=== PATIENT | male | born 1985 | race Caucasian/White ===

== ENCOUNTER 2020-10-08 14:07 | Outpatient (CLI) | payer BC ==
[~2020-10-08 14:07] MED LIST: HYDR1TAB PO
== END 2020-10-08 14:30 | disposition home or self-care (01) ==
LOC: SLEEP 14:07
PROVIDERS: ATTEND Otolaryngology Otolaryngology/Facial Plastic Surgery
DX: G47.33 Obstructive sleep apnea (adult) (pediatric) (principal)
CPT/HCPCS: G0399